=== PATIENT | female | born 1960 | race Caucasian/White ===

== ENCOUNTER 2023-04-01 03:02 | Emergency (ER) | payer OTHER ==
[~2023-04-01] VITALS: Ht 172.7 cm; Wt 81.7 kg
[2023-04-01] MEDS ORDERED: VITAMIN B-1100 M1 PO (03:42)
[2023-04-01] MEDS ORDERED: FUROSEMIDE20 MG PO (03:42)
[2023-04-01] MEDS ORDERED: PROZAC2010 PO (03:42)
[2023-04-01] MEDS ORDERED: CONSTULOSE10 GM/155 PO (03:42)
[2023-04-01] MEDS ORDERED: Nadolol20 MG PO (03:42)
[2023-04-01] MEDS ORDERED: OXYC5 PO (03:42)
[2023-04-01] MEDS ORDERED: PANTOPRAZOLE SO40 M2 PO (03:42)
[2023-04-01 06:30] LABS: BASOPHILS ABSOLUTE AUTO 0.07 K/mm3 (0.00-0.23); BASOPHILS PERCENT AUTO 1 % (0-2); EOSINOPHILS ABSOLUTE AUTO 0.39 K/mm3 (0.00-0.68); EOSINOPHILS PERCENT AUTO 7 % (0-6); Hematocrit 39.7 % (33.0-51.0); Hemoglobin 13.6 g/dL (11.5-16.0); IMMATURE GRAN ABSOLUTE AUTO 0.02 K/mm3 (0.00-0.10); IMMATURE GRAN PERCENT AUTO 0 % (0-1); LYMPHOCYTES ABSOLUTE AUTO 1.78 K/mm3 (0.84-5.20); LYMPHOCYTES PERCENT AUTO 33 % (21-46); MONOCYTES ABSOLUTE AUTO 0.61 K/mm3 (0.16-1.47); MONOCYTES PERCENT AUTO 11 % (4-13); Mean Corpuscular HGB 38.5 pg (26.0-34.0); Mean Corpuscular HGB Conc 34.3 g/dL (31.5-36.5); Mean Corpuscular Volume 113 fL (80-100); Mean Platelet Volume 12.5 fL (9.1-12.4); NEUTROPHILS ABSOLUTE AUTO 2.54 K/mm3 (1.96-9.15); NEUTROPHILS PERCENT AUTO 47 % (41-73); RDW Coefficient Variation 15.2 % (11.7-14.2); RDW Standard Deviation 64.1 fL (35.1-46.3); Red Blood Cell Count 3.53 M/mm3 (3.80-5.20); White Blood Cell Count 5.41 K/mm3 (4.00-11.30)
[2023-04-01 06:37] LABS: Platelet Count 46 K/mm3 (150-400)
[2023-04-01 06:44] LABS: Albumin, Blood 2.4 g/dL (3.4-5.0); Albumin/Globulin Ratio 0.4 (0.8-1.8); Bilirubin, Total 4.5 mg/dL (0.1-1.0); Bun/Creatinine Ratio 13.2 (12.0-20.0); Calcium, Blood 8.1 mg/dL (8.5-10.1); Creatinine, Blood 0.61 mg/dL (0.40-1.00); Globulin, Blood 5.6 g/dL (2.2-4.0); Potassium, Blood 3.5 mmol/L (3.5-5.5)
[2023-04-01 08:38] LABS: International Normalized Ratio 2.05; Prothrombin Time Results 20.7 Sec (9.7-11.5)
[2023-04-01 09:00] VITALS: BP 127/78
[2023-04-01] MEDS ORDERED: Naltrexone HCl50 MG PO (09:04)
== END 2023-04-01 09:15 | disposition home or self-care (01) ==
LOC: ER 03:02
PROVIDERS: Emergency Medicine; Student in an Organized Health Care Education/Training Program
DX: R07.9 Chest pain, unspecified (principal); D69.6 Thrombocytopenia, unspecified; F10.10 Alcohol abuse, uncomplicated
CPT/HCPCS: 71046; 80053; 84484; 85025; 85610; 93005; 93010; 99284-25

== ENCOUNTER → 2023-05-21 | Outpatient (CLI) | payer OTHER ==
[~2023-05-21] MED LIST: B-1100 M1 PO; CONSTULOSE10 GM/155 PO; FURO20 PO; FUROSEMIDE20 MG PO; LACT10SY PO; NADO20 PO; Nadolol20 MG PO; Naltrexone HCl50 MG PO; OXYC5 PO; PANT40 PO; PANTOPRAZOLE SO40 M2 PO; PROZAC2010 PO; VITAMIN B-1100 M1 PO
[2023-05-21 17:00] LABS: BASOPHILS ABSOLUTE AUTO 0.13 K/mm3 (0.00-0.23); BASOPHILS PERCENT AUTO 3 % (0-2); EOSINOPHILS ABSOLUTE AUTO 0.08 K/mm3 (0.00-0.68); EOSINOPHILS PERCENT AUTO 2 % (0-6); Hematocrit 35.5 % (33.0-51.0); Hemoglobin 12.1 g/dL (11.5-16.0); IMMATURE GRAN ABSOLUTE AUTO 0.02 K/mm3 (0.00-0.10); IMMATURE GRAN PERCENT AUTO 0 % (0-1); LYMPHOCYTES ABSOLUTE AUTO 1.63 K/mm3 (0.84-5.20); LYMPHOCYTES PERCENT AUTO 31 % (21-46); MONOCYTES ABSOLUTE AUTO 0.96 K/mm3 (0.16-1.47); MONOCYTES PERCENT AUTO 18 % (4-13); Mean Corpuscular HGB 39.3 pg (26.0-34.0); Mean Corpuscular HGB Conc 34.1 g/dL (31.5-36.5); Mean Corpuscular Volume 115 fL (80-100); NEUTROPHILS PERCENT AUTO 46 % (41-73); RDW Coefficient Variation 18.3 % (11.7-14.2); RDW Standard Deviation 77.8 fL (35.1-46.3); Red Blood Cell Count 3.08 M/mm3 (3.80-5.20); White Blood Cell Count 5.22 K/mm3 (4.00-11.30)
[2023-05-21 17:10] LABS: Mean Platelet Volume 11.1 fL (9.1-12.4)
[2023-05-21 17:47] LABS: Platelet Count 69 K/mm3 (150-400)
[2023-05-21 18:17] LABS: International Normalized Ratio 2.52; Prothrombin Time Results 25.1 Sec (9.7-11.5)
== END | disposition home or self-care (01) ==
LOC: LAB 16:53 → LAB SHORT 16:53
PROVIDERS: Family Medicine
DX: D69.2 Other nonthrombocytopenic purpura (principal)
CPT/HCPCS: 85025; 85610; 85730

== ENCOUNTER 2023-05-22 14:35 | Inpatient (IN) | payer OTHER ==
[~2023-05-22] VITALS: Ht 170.2 cm; Wt 88.2 kg
[~2023-05-22 14:35] MED LIST changes: -B-1100 M1 PO; -FURO20 PO; -LACT10SY PO; -NADO20 PO; -PANT40 PO
[2023-05-22 15:20] LABS: BASOPHILS ABSOLUTE AUTO 0.14 K/mm3 (0.00-0.23); BASOPHILS PERCENT AUTO 3 % (0-2); EOSINOPHILS ABSOLUTE AUTO 0.11 K/mm3 (0.00-0.68); EOSINOPHILS PERCENT AUTO 2 % (0-6); Hematocrit 35.1 % (33.0-51.0); Hemoglobin 11.7 g/dL (11.5-16.0); IMMATURE GRAN ABSOLUTE AUTO 0.02 K/mm3 (0.00-0.10); IMMATURE GRAN PERCENT AUTO 0 % (0-1); LYMPHOCYTES ABSOLUTE AUTO 1.67 K/mm3 (0.84-5.20); LYMPHOCYTES PERCENT AUTO 33 % (21-46); MONOCYTES ABSOLUTE AUTO 0.97 K/mm3 (0.16-1.47); MONOCYTES PERCENT AUTO 19 % (4-13); Mean Corpuscular HGB 38.4 pg (26.0-34.0); Mean Corpuscular HGB Conc 33.3 g/dL (31.5-36.5); Mean Corpuscular Volume 115 fL (80-100); Mean Platelet Volume 11.4 fL (9.1-12.4); NEUTROPHILS ABSOLUTE AUTO 2.23 K/mm3 (1.96-9.15); NEUTROPHILS PERCENT AUTO 43 % (41-73); NRBC ABSOLUTE 0.02 K/mm3 (0.00-0.02); NRBC Auto 0.4 /100 WBC (0.0-0.2); Platelet Count 69 K/mm3 (150-400); RDW Coefficient Variation 18.3 % (11.7-14.2); RDW Standard Deviation 77.5 fL (35.1-46.3); Red Blood Cell Count 3.05 M/mm3 (3.80-5.20); White Blood Cell Count 5.14 K/mm3 (4.00-11.30)
[2023-05-22 15:28] LABS: Source, Urine Clean Catch
[2023-05-22 15:32] LABS: Appearance, Urine Hazy (Clear); Blood, Urine 1+ (Neg); Color, Urine Amber (P-Yellow); Glucose Qualitative, Urine Neg (Neg); Ketones, Urine Neg (Neg); Leukocyte Esterase, Urine 1+ (Neg); Nitrite, Urine Pos (Neg); Protein, Urine 2+ (Neg); Urobilinogen, Urine 4+ (Normal)
[2023-05-22 15:39] LABS: Albumin, Blood 2.2 g/dL (3.4-5.0); Albumin/Globulin Ratio 0.4 (0.8-1.8); Bilirubin, Total 7.9 mg/dL (0.1-1.0); Bun/Creatinine Ratio 13.6 (12.0-20.0); Calcium, Blood 8.3 mg/dL (8.5-10.1); Creatinine, Blood 0.59 mg/dL (0.40-1.00); Globulin, Blood 5.9 g/dL (2.2-4.0); Potassium, Blood 3.7 mmol/L (3.5-5.5); Total Protein, Blood 8.1 g/dL (6.4-8.2)
[2023-05-22 15:44] LABS: Bilirubin, Urine 3+ (Neg)
[2023-05-22 15:45] LABS: Bacteria Many /hpf; Red Blood Cells, Urine 0-2 /hpf (0-2); Squamous Epithelial Cells Few /hpf (Few)
[2023-05-22 15:46] LABS: Hyaline Casts 0-2 /lpf (0-2); Renal Epithelial Rare /hpf (0-Rare)
--- NOTE | 2023-05-22 22:50 | NUR ---
PT CHART REVEIWED FOR ADMISSION
[2023-05-23] VITALS (9 sets, daily range): BP systolic 94–120; BP diastolic 59–94
[2023-05-23 01:17] LABS: Albumin/Globulin Ratio 0.4 (0.8-1.8); Bilirubin, Total 6.2 mg/dL (0.1-1.0); Bun/Creatinine Ratio 14.2 (12.0-20.0); Creatinine, Blood 0.56 mg/dL (0.40-1.00); Globulin, Blood 5.3 g/dL (2.2-4.0); Potassium, Blood 3.5 mmol/L (3.5-5.5); Total Protein, Blood 7.3 g/dL (6.4-8.2)
[2023-05-23 04:57] LABS: Hematocrit 28.2 % (33.0-51.0); Hemoglobin 9.3 g/dL (11.5-16.0); Mean Corpuscular HGB 38.3 pg (26.0-34.0); Mean Corpuscular Volume 116 fL (80-100); Mean Platelet Volume 11.5 fL (9.1-12.4); Platelet Count 56 K/mm3 (150-400); RDW Coefficient Variation 18.1 % (11.7-14.2); RDW Standard Deviation 76.4 fL (35.1-46.3); Red Blood Cell Count 2.43 M/mm3 (3.80-5.20); White Blood Cell Count 5.35 K/mm3 (4.00-11.30)
--- NOTE | 2023-05-23 05:21 | NUR ---
SHIFT SUMMARY ORIENTED TO ROOM, DR. RAMAN CONTACT TO REQUEST PAIN MEDICATION FOR PT R WRIST PAIN AND TO VERIFY PT IS NOT TO RECEIVE FFP. FFP WAS CANCELED D/T CANCELING THE PARACENTESIS PER DR. HAYWARD. PRN FENTANYL GIVEN X 1 WITH MINIMAL EFFECT, ICE PACK PLACED ON R WRIST BUMP PER PT REQUEST WITH MUCH GREATER RELIEF.
[2023-05-23 06:05] LABS: BASOPHILS PERCENT MAN 2 % (0-2); EOSINOPHILS ABSOLUTE MAN 0.21 K/mm3 (0.00-0.68); EOSINOPHILS PERCENT MAN 4 % (0-6); LYMPHOCYTES ABSOLUTE MAN 1.81 K/mm3 (0.84-5.20); LYMPHOCYTES PERCENT MAN 34 % (21-46); MONOCYTES ABSOLUTE MAN 0.74 K/mm3 (0.16-1.47); MONOCYTES PERCENT MAN 14 % (4-13); NEUTROPHILS ABSOLUTE MAN 2.46 K/mm3 (1.96-9.15); SEG NEUTROPHILS PERCENT MAN 46 % (41-73); TOTAL CELLS COUNTED 100
--- NOTE | 2023-05-23 17:33 | NUR ---
SHIFT SUMMARY: PT IS A 62 YEAR OLD FEMALE HERE FOR ADMISSION OF ABDOMINAL PAIN, BLOATING, AND A PAINFUL LUMP OF HER RIGHT WRIST. SHE CLAIMS SHE HAD QUIT DRINKING 8 WEEKS AGO. TEST HAVE BEEN PERFORMED: ECHO, CT OF ABD, AND US OF GALLBLADDER. PLAN IS TO HAVE ORTHO SEE PT IN THE MORNING FOR EVALUATION OF HER RIGHT WRIST. THE LUMP THAT IS IN HER RIGHT WRIST IS PAINFUL, MANAGING PAIN WITH MEDICATION AND COOL THERAPY. SHE IS PLEASANT AND COOPERATIVE. WILL CALL FOR ASSISTANCE TO USE THE RESTROOM, BUT OTHERWISE INDEPENDENT. USES CALL LIGHT APPROPRIATELY. LYING IN BED, WATCHING TV, CALL LIGHT WITHIN REACH. NO SIGNS OF SYMPTOMS OF DISTRESS.
[2023-05-23 17:50] LABS: Bilirubin, Direct 3.4 mg/dL (0.0-0.3); Bilirubin, Indirect 3.2 mg/dL (0.1-0.7); Bilirubin, Total 6.6 mg/dL (0.1-1.0)
[2023-05-23] MEDS ORDERED: LACT10SY PO (20:35)
[2023-05-23] MEDS ORDERED: FURO20 PO (20:35)
[2023-05-23] MEDS ORDERED: NADO20 PO (20:40)
[2023-05-23] MEDS ORDERED: PANT40 PO (20:41)
[2023-05-23] MEDS ORDERED: B-1100 M1 PO (20:44)
[2023-05-24 05:19] VITALS: BP 101/64
--- NOTE | 2023-05-24 05:52 | NUR ---
SHIFT SUMMARY 62 YR F ADMITTED ON 05/23/23 FOR ABDOMINAL PAIN. FULL CODE. NO ACUTE CHANGES THIS SHIFT. LUMP IN R WRIST IS VERY PAINFUL AND SHE IS REQUIRING PAIN MEDS Q4. SHE HAS BEEN NPO SINCE MIDNIGHT IN CASE A SURGICAL PROCEDURE NEEDS TO BE PERFORMED. PT WAS TAKEN FOR CT SCAN @ 2029 LAST NIGHT. SHE IS A&O X 4 AND IS PLEASANT AND COOPERATIVE W/ CARE. CALLS APPROPRIATELY FOR ASSISTANCE.
[2023-05-24 06:18] LABS: BASOPHILS ABSOLUTE AUTO 0.15 K/mm3 (0.00-0.23); BASOPHILS PERCENT AUTO 2 % (0-2); EOSINOPHILS ABSOLUTE AUTO 0.23 K/mm3 (0.00-0.68); EOSINOPHILS PERCENT AUTO 4 % (0-6); Hematocrit 30.1 % (33.0-51.0); Hemoglobin 9.8 g/dL (11.5-16.0); IMMATURE GRAN ABSOLUTE AUTO 0.02 K/mm3 (0.00-0.10); IMMATURE GRAN PERCENT AUTO 0 % (0-1); LYMPHOCYTES PERCENT AUTO 23 % (21-46); MONOCYTES PERCENT AUTO 16 % (4-13); Mean Corpuscular HGB 38.4 pg (26.0-34.0); Mean Corpuscular HGB Conc 32.6 g/dL (31.5-36.5); Mean Corpuscular Volume 118 fL (80-100); NEUTROPHILS ABSOLUTE AUTO 3.42 K/mm3 (1.96-9.15); NEUTROPHILS PERCENT AUTO 55 % (41-73); Platelet Count 60 K/mm3 (150-400); RDW Coefficient Variation 17.9 % (11.7-14.2); RDW Standard Deviation 79.7 fL (35.1-46.3); Red Blood Cell Count 2.55 M/mm3 (3.80-5.20); White Blood Cell Count 6.22 K/mm3 (4.00-11.30)
[2023-05-24 06:24] LABS: International Normalized Ratio 2.43; Prothrombin Time Results 24.3 Sec (9.7-11.5)
[2023-05-24 06:38] LABS: Albumin, Blood 1.9 g/dL (3.4-5.0); Albumin/Globulin Ratio 0.4 (0.8-1.8); Bilirubin, Total 5.1 mg/dL (0.1-1.0); Bun/Creatinine Ratio 10.3 (12.0-20.0); Calcium, Blood 7.5 mg/dL (8.5-10.1); Creatinine, Blood 0.58 mg/dL (0.40-1.00); Globulin, Blood 4.9 g/dL (2.2-4.0); Potassium, Blood 3.6 mmol/L (3.5-5.5); Total Protein, Blood 6.8 g/dL (6.4-8.2)
[2023-05-24 07:39] VITALS: BP 100/64
[2023-05-24 13:07] VITALS: BP 100/62
[2023-05-24 16:22] VITALS: BP 104/65
--- NOTE | 2023-05-24 18:03 | NUR ---
SHIFT SUMMARY: PT IS A 62 YEAR OLD FEMALE WHO IS ALERT AND ORIENTED TO PERSON, PLACE, TIME, AND SITUATION. FINAL URINE CULTURE CAME BACK TODAY SHOWING POSITIVE ESBL, PLACING PATIENT ON CONTACT PRECAUTIONS AND IV ANTIBIOTIC THERAPY CHANGED. SHE IS AMBULATORY TO THE RESTROOM, WILL USE CALL LIGHT FOR ASSISTANCE TO HAVE IV OR SCDS DISCONNECTED PRIOR TO GETTING OUT OF BED. USES CALL LIGHT APPROPRIATELY AND IS PLEASANT AND COOPERATIVE WITH CARE AND STAFF. ORTHO DR. TEJADA CONSULTED WITH THE PATIENT THIS AFTERNOON. DR. TEJADA STATED THAT THE PATIENT'S LUMP IN HER WRIST IS A HEMATOMA AND PLAN IS TO DO SURGICAL INTERVENTION TOMORROW, SO TO HAVE PATIENT BE NPO STATUS AFTER 00:00. LIGHT COMPRESSION EVGENY WRAP APPLIED TO RIGHT WRIST AND FOREARM INSTRUCTED BY DR. TEJADA. PT IS IN BED AT THIS TIME, CALL LIGHT WITHIN REACH, AND SHOWING NO SIGNS OF SYMPTOMS OF DISTRESS.
[2023-05-24 20:07] VITALS: BP 92/66
[2023-05-25 04:28] VITALS: BP 115/63
[2023-05-25 05:08] LABS: BASOPHILS ABSOLUTE AUTO 0.11 K/mm3 (0.00-0.23); BASOPHILS PERCENT AUTO 2 % (0-2); EOSINOPHILS ABSOLUTE AUTO 0.26 K/mm3 (0.00-0.68); EOSINOPHILS PERCENT AUTO 5 % (0-6); Hematocrit 29.1 % (33.0-51.0); Hemoglobin 9.7 g/dL (11.5-16.0); IMMATURE GRAN ABSOLUTE AUTO 0.01 K/mm3 (0.00-0.10); IMMATURE GRAN PERCENT AUTO 0 % (0-1); LYMPHOCYTES PERCENT AUTO 39 % (21-46); MONOCYTES ABSOLUTE AUTO 0.77 K/mm3 (0.16-1.47); MONOCYTES PERCENT AUTO 16 % (4-13); Mean Corpuscular HGB 38.5 pg (26.0-34.0); Mean Corpuscular HGB Conc 33.3 g/dL (31.5-36.5); Mean Corpuscular Volume 116 fL (80-100); Mean Platelet Volume 11.8 fL (9.1-12.4); NEUTROPHILS ABSOLUTE AUTO 1.79 K/mm3 (1.96-9.15); NEUTROPHILS PERCENT AUTO 37 % (41-73); Platelet Count 53 K/mm3 (150-400); RDW Coefficient Variation 17.7 % (11.7-14.2); RDW Standard Deviation 76.5 fL (35.1-46.3); Red Blood Cell Count 2.52 M/mm3 (3.80-5.20); White Blood Cell Count 4.84 K/mm3 (4.00-11.30)
--- NOTE | 2023-05-25 05:12 | NUR ---
SHIFT SUMMARY 62 YR F ADMITTED ON 05/23/23. FULL CODE. NO ACUTE CHANGES THIS SHIFT. PT HAS BEEN NPO SINCE MIDNIGHT IN ANTICIPATION OF SURGICAL INTERVENTION FOR HEMAOTOMA ON HER RIGHT WRIST. PT BEING MEDICATED FOR PAIN Q4 W/ FENTANYL. PT HAD C/O RANDOM ITCHING BUT STATED THAT IT BASICALLY RESOLVED ITSELF. SHE WAS GIVEN ICE PACKS FOR HER WRIST AND TO HELP W/ THE ITCHING WITH GOOD RESULTS. SHE STATES THAT SHE IS ANXIOUS TO HAVE HER WRIST "FIXED" AND FOR THE PAIN TO BE GONE. SHE IS PLEASANT AND COOPERATIVE WITH CARE.
[2023-05-25 05:32] LABS: Albumin, Blood 1.9 g/dL (3.4-5.0); Albumin/Globulin Ratio 0.4 (0.8-1.8); Bilirubin, Total 5.4 mg/dL (0.1-1.0); Calcium, Blood 7.6 mg/dL (8.5-10.1); Creatinine, Blood 0.6 mg/dL (0.40-1.00); Globulin, Blood 4.8 g/dL (2.2-4.0); Potassium, Blood 3.5 mmol/L (3.5-5.5); Total Protein, Blood 6.7 g/dL (6.4-8.2)
[2023-05-25 07:48] VITALS: BP 105/59
--- NOTE | 2023-05-25 10:02 | NUR ---
PT STATUS: PT STATED THAT SHE HAD A DIFFICULT TIME URINATING THIS MORNING. SHE STATES THAT IT WAS HARD TO "GET IT ALL OUT". DENIES FREQUENCY OR BURNING.
[2023-05-25 13:10] VITALS: BP 104/65
--- NOTE | 2023-05-25 13:26 | NUR ---
PT STATUS: PT'S DIFFICULTY URINATING HAS RESOLVED POST ADMINISTRATION OF LASIX.
--- NOTE | 2023-05-25 15:16 | NUR ---
UPDATE: DR. TEJADA CAME BY AND SAW THE PATIENT, PLAN IS EVGENY WRAP COMPRESSION WITH ICE TO HER RIGHT WRIST. GAVE VERBAL TO D/C NPO STATUS. UPDATE GIVEN TO DR. IVAN. I ALSO ASKED ABOUT PARAMETERS FOR THE PATIENT'S PROPRANOLOL. HE ADVISED TO D/C MEDICATION DUE TO COVERAGE NOT BEING NEEDED BASED ON THE PATIENT'S BP WHILE IN THE HOSPITAL. WILL PLACE AN ORDER TO D/C MEDICATION (PROPRANOLOL)
[2023-05-25 16:28] VITALS: BP 97/60
--- NOTE | 2023-05-25 16:40 | NUR ---
SHIFT SUMMARY: PT IS A 62 YEAR OLD FEMALE WHO IS ALERT AND ORIENTED TO PERSON, PLACE, TIME, AND SITUATION. SHE IS PLEASANT AND COOPERATIVE WITH STAFF AND CARE PROVIDED. UNREMARKABLE SHIFT, BESIDES DISCONTINUING NPO STATUS AWAITING POSSIBLE SURGICAL INTERVENTION FOR THE HEMATOMA OF HER RIGHT WRIST. DR. TEJADA EVALUATED AGAIN TODAY AND DECIDED TO CONTINUE WITH EVGENY WRAP COMPRESSION WITH ICE WITHOUT MOVING FORWARD WITH SURGICAL INTERVENTION. PT'S IV ANTIBIOTIC THERAPY WAS DISCONTINUED WELL AND SHE WAS BEGIN ORAL ANTIBIOTIC THERAPY IN THE MORNING. SHE HAS BEEN INDEPENDENT TO THE RESTROOM, RESTING IN BED, SHOWING NO SIGNS OR SYMPTOMS OF DISTRESS, CALL LIGHT WITHIN REACH. SEE OTHER NURSE NOTES FOR UPDATES AND DETAILS THROUGHOUT THE SHIFT.
[2023-05-25 19:15] VITALS: BP 104/65
[2023-05-26 03:16] VITALS: BP 114/64
--- NOTE | 2023-05-26 04:06 | NUR ---
SHIFT SUMMARY PT A&O X4, INDEPENDENT IN ROOM, CALM AND COOPERATIVE WITH CARE. TRANSITIONING FROM IV ANTIBIOTICS TO ORAL ANTIBIOTICS. STARTED PO BACTRIM. LUMP ON TOP OF RIGHT HAND COVERED WITH EVGENY BANDAGE AND ICE APPLIED. PATIENT COMPLAINING OF PAIN IN THE RIGHT ARM/HAND, TREATED PER EMAR. ON TELE, NSR 60's. BED KEPT IN LOWEST POSITION, BED LIGHT WITHIN REACH, AND PT CALLS APPROPRIATELY.
[2023-05-26 05:52] LABS: BASOPHILS ABSOLUTE AUTO 0.11 K/mm3 (0.00-0.23); BASOPHILS PERCENT AUTO 2 % (0-2); EOSINOPHILS ABSOLUTE AUTO 0.21 K/mm3 (0.00-0.68); EOSINOPHILS PERCENT AUTO 4 % (0-6); Hematocrit 30.8 % (33.0-51.0); Hemoglobin 10.3 g/dL (11.5-16.0); IMMATURE GRAN ABSOLUTE AUTO 0.02 K/mm3 (0.00-0.10); IMMATURE GRAN PERCENT AUTO 0 % (0-1); LYMPHOCYTES ABSOLUTE AUTO 1.62 K/mm3 (0.84-5.20); LYMPHOCYTES PERCENT AUTO 33 % (21-46); MONOCYTES ABSOLUTE AUTO 0.91 K/mm3 (0.16-1.47); MONOCYTES PERCENT AUTO 19 % (4-13); Mean Corpuscular HGB 38.4 pg (26.0-34.0); Mean Corpuscular HGB Conc 33.4 g/dL (31.5-36.5); Mean Corpuscular Volume 115 fL (80-100); Mean Platelet Volume 12.1 fL (9.1-12.4); NEUTROPHILS ABSOLUTE AUTO 2.01 K/mm3 (1.96-9.15); NEUTROPHILS PERCENT AUTO 41 % (41-73); RDW Coefficient Variation 17.3 % (11.7-14.2); RDW Standard Deviation 74.1 fL (35.1-46.3); Red Blood Cell Count 2.68 M/mm3 (3.80-5.20); White Blood Cell Count 4.88 K/mm3 (4.00-11.30)
[2023-05-26 06:00] LABS: Platelet Count 50 K/mm3 (150-400)
[2023-05-26 06:23] LABS: Albumin/Globulin Ratio 0.4 (0.8-1.8); Bilirubin, Total 5.3 mg/dL (0.1-1.0); Bun/Creatinine Ratio 8.4 (12.0-20.0); Calcium, Blood 7.8 mg/dL (8.5-10.1); Creatinine, Blood 0.59 mg/dL (0.40-1.00); Globulin, Blood 4.8 g/dL (2.2-4.0); Potassium, Blood 3.4 mmol/L (3.5-5.5); Total Protein, Blood 6.8 g/dL (6.4-8.2)
[2023-05-26 08:25] VITALS: BP 105/61
[2023-05-26 16:25] VITALS: BP 111/65
[2023-05-26] MEDS ORDERED: SULTRIDS PO (16:37)
--- NOTE | 2023-05-26 17:59 | NUR ---
DISCHARGE SUMMARY PATIENT GIVEN EVENING DOSE OF ANTIBIOTIC PER DR IVAN ORDERS, PATIENT LEFT UNIT VIA WHEELCHAIR WITH AMANDA GAMING. PATIENT LEAVING HOSPITAL VIA PRIVATE VEHICLE AT 1800
--- NOTE | 2023-05-26 18:23 | NUR ---
DISCHARGE NOTE PT DISCHARGED AT APPROX 1740 TO HOME. PT WAS PROVIDED WITH WRITTEN AND VERBAL INSTRUCTIONS AND REPORTED UNDERSTANDING. PT A&OX4, VSS, PAIN MANAGED, VOIDING, TOLERATING PO, AND AMB INDEPENDENTLY. BELONGINGS WERE RETURNED AND KATALINA ESCOURTED PT OUT.
[2023-05-27] MEDS ORDERED: Prozac20 MG PO (12:41)
[2023-05-27] MEDS ORDERED: Protonix40 MG PO (12:41)
[2023-05-27] MEDS ORDERED: NADO20 PO (12:41)
[2023-05-27] MEDS ORDERED: LASIX20 M2 PO (12:41)
[2023-05-27] MEDS ORDERED: B-1100 M1 PO (12:41)
[2023-05-27] MEDS ORDERED: Bactrim Ds Tab1 EACH PO (12:41)
[2023-05-27] MEDS ORDERED: HYDR1TAB94 PO (12:41)
[2023-05-27] MEDS ORDERED: Enulose10 GM/15 M PO (12:41)
== END 2023-05-26 18:18 | disposition home or self-care (01) | DRG 433 ==
LOC: ER 14:35 → MEDS 14:36
PROVIDERS: Internal Medicine; Student in an Organized Health Care Education/Training Program; ADMIT Internal Medicine
PROC: 0H9FXZX Drainage of Right Hand Skin, External Approach, Diagnostic (ICD-10-PCS; principal; 2023-05-26)
DX: K70.31 Alcoholic cirrhosis of liver with ascites (principal); D68.9 Coagulation defect, unspecified; L02.413 Cutaneous abscess of right upper limb; N39.0 Urinary tract infection, site not specified; L03.113 Cellulitis of right upper limb; K70.11 Alcoholic hepatitis with ascites; F10.20 Alcohol dependence, uncomplicated; N63.0 Unspecified lump in unspecified breast; D69.6 Thrombocytopenia, unspecified; F32.9 Major depressive disorder, single episode, unspecified; F12.90 Cannabis use, unspecified, uncomplicated; B96.20 Unspecified Escherichia coli [E. coli] as the cause of diseases classified elsewhere; E80.6 Other disorders of bilirubin metabolism; K82.8 Other specified diseases of gallbladder; S60.221A Contusion of right hand, initial encounter; X58.XXXA Exposure to other specified factors, initial encounter; Z88.5 Allergy status to narcotic agent; Z79.891 Long term (current) use of opiate analgesic; Z79.899 Other long term (current) drug therapy
CPT/HCPCS: 36415; 71260; 73201; 74177; 76705; 80053; 81001; 82247; 82248; 83605; 83690; 85025; 85610; 85651; 86140; 87040; 87077; 87086; 87186; 93005; 93010; 93308; 96365-59; 96367; 96375; 96376; 99285-25; A9270; G0378; J0690; J0696; J2185; J3010; J7030; J7050; P9047; Q9967

== ENCOUNTER 2023-05-27 10:26 | Emergency (ER) | payer OTHER ==
[~2023-05-27] VITALS: Ht 170.2 cm; Wt 89.4 kg
[~2023-05-27 10:26] MED LIST changes: +B-1100 M1 PO; +FURO20 PO; +LACT10SY PO; +NADO20 PO; +PANT40 PO; +SULTRIDS PO
[2023-05-27 10:48] VITALS: BP 119/79
[2023-05-27] MEDS ORDERED: NADO20 PO (12:41)
[2023-05-27] MEDS ORDERED: LASIX20 M2 PO (12:41)
[2023-05-27] MEDS ORDERED: Protonix40 MG PO (12:41)
[2023-05-27] MEDS ORDERED: Prozac20 MG PO (12:41)
[2023-05-27] MEDS ORDERED: Enulose10 GM/15 M PO (12:41)
[2023-05-27] MEDS ORDERED: B-1100 M1 PO (12:41)
[2023-05-27] MEDS ORDERED: Bactrim Ds Tab1 EACH PO (12:41)
[2023-05-27] MEDS ORDERED: HYDR1TAB94 PO (12:41)
== END 2023-05-27 12:55 | disposition home or self-care (01) ==
LOC: ER 10:26
DX: S60.221A Contusion of right hand, initial encounter (principal); K70.31 Alcoholic cirrhosis of liver with ascites; F10.11 Alcohol abuse, in remission; Z88.5 Allergy status to narcotic agent; Z79.899 Other long term (current) drug therapy
CPT/HCPCS: 10060; 96372-59; 99283-25; J1885

== ENCOUNTER 2023-07-08 20:31 | Emergency (ER) | payer OTHER ==
[~2023-07-08] VITALS: Ht 172.7 cm; Wt 77.1 kg
[~2023-07-08 20:31] MED LIST changes: +Bactrim Ds Tab1 EACH PO; +Enulose10 GM/15 M PO; +HYDR1TAB94 PO; +LASIX20 M2 PO; +Protonix40 MG PO; +Prozac20 MG PO
[2023-07-08 20:37] VITALS: BP 109/55
[2023-07-08] MEDS ORDERED: HYDR1TAB94 PO (22:19)
[2023-07-08] MEDS ORDERED: Lasix20 MG PO (22:19)
[2023-07-08] MEDS ORDERED: K-Dur20 MEQ PO (22:19)
== END 2023-07-08 22:33 | disposition home or self-care (01) ==
LOC: ER 20:31
DX: S70.02XA Contusion of left hip, initial encounter (principal); Z76.0 Encounter for issue of repeat prescription; R60.0 Localized edema; W18.2XXA Fall in (into) shower or empty bathtub, initial encounter; Z88.5 Allergy status to narcotic agent; Z79.899 Other long term (current) drug therapy
CPT/HCPCS: 73502; 99283-25; A9270